=== PATIENT | female | born 1980 | race Caucasian/White ===

== ENCOUNTER → 2023-07-26 07:58 | Outpatient (REF) | payer OTHER, SELFPAY | LOC: HWRAD 07:58 | PROVIDERS: ATTENDING PHYSICIAN Nurse Practitioner | DX: R91.1 Solitary pulmonary nodule (principal) | CPT/HCPCS: 71260; Q9967 ==

== ENCOUNTER → 2024-02-26 06:51 | Outpatient (REF) | payer OTHER, SELFPAY | LOC: HWWDC 06:51 | PROVIDERS: ATTENDING PHYSICIAN Obstetrics & Gynecology; FAMILY PHYSICIAN Nurse Practitioner Family | DX: Z12.31 Encounter for screening mammogram for malignant neoplasm of breast (principal) | CPT/HCPCS: 77063; 77067 ==

== ENCOUNTER → 2024-05-08 07:49 | Outpatient (REF) | payer OTHER, SELFPAY | LOC: WDC 07:49 | PROVIDERS: ATTENDING PHYSICIAN Obstetrics & Gynecology | DX: R92.30 Dense breasts, unspecified (principal) | CPT/HCPCS: 76641 ==